=== PATIENT | female | born 1965 | race Caucasian/White ===

== ENCOUNTER → 2021-04-24 13:12 | Outpatient (CLI) | payer SELFPAY, OTHER ==
--- NOTE | 2021-04-24 13:21 | CT_ITS ---
STUDY: CT CHEST WITHOUT CONTRAST-limited (Overread chest structures for coronary scoring) REASON FOR EXAM: Female, 55 years old. FAM HX OF CAD CHEST OVER READ ONLY RADIATION DOSAGE (If Supplied By Facility): CTDIvol = ( 12.19 ) mGy, DLP = ( 195.04 ) mGycm TECHNIQUE: Transaxial imaging was performed without the administration of intravenous contrast material. Individualized dose optimization techniques were used for this CT. COMPARISON: None. FINDINGS: No airspace consolidation, localized groundglass opacity or noncalcified pulmonary nodule in the visualized portions of the lungs. No demonstrated effusion or pneumothorax. There are a few scattered subpleural and interstitial fibrotic reticular densities. Normal heart and pericardium. Coronary calcium scoring reported separately. No demonstrated adenopathy. No destructive bony process. Diminished density throughout the liver compatible with hepatic steatosis. CT/Limited Chest CT w/CCTA IMPRESSION: 1. No demonstrated pulmonary nodule/mass. 2. Hepatic steatosis. Electronically Signed: Miguelangel Baker MD ([facility]) at 8:18 EDT , Service support ,
[2021-04-24 13:36] VITALS: BP 128/76; PULSE 56; RESP 16; O2SAT 100; BMI 37.8
--- NOTE | 2021-04-24 17:59 | CA.SCORE ---
Calcium Scoring Date of Study:: 04/24/21 Coronary Calcium Scoring: High-resolution Computed Tomographic imaging of the chest was performed on 04-24-2021 with particular attention paid to the coronary arteries. Images from the examination were analyzed for the presence and extent of coronary artery calcification , using coronary calcium quantification software. The patient tolerated the procedure well and there were no complications. The results of the coronary calcification analysis are provided below. Findings Coronary Artery Left Main (LM): 0 Left Anterior Descending (LAD): 9.93 Left Circumflex (LCX): 0 Right Coronary Artery (RCA): 0 Total Agatston Score: 9.93 Percentile Ranking: Compared to prepublished reference tables between 50% and 75% of patients of the same gender and similar age had the same and/or lower scores Calcium Scoring Interpretation: 0 No identifiable atherosclerotic plaque. Very low cardiovascular disease risk. <5% chance of presence coronary artery disease A Negative Examination 1-10 Minimal Plaque burden. Significant coronary artery disease very unlikely. 11-100 Mild plaque burden. Likely mild or minimal coronary atherosclerosis. 101-400 Moderate plaque burden Moderate non-obstructive coronary artery disease highly likely. Over 400 Extensive plaque burden. High likelihood of at least one significant coronary stenosis (>50% diameter) Calcium Score: 1 -10 Significant coronary artery disease very unlikely Conclusion: Continue vascular risk evaluation and care as deemed appropriate. This note was generated using a voice recognition system and there may be incorrect words, spelling or punctuation that were not noted when reviewing the office note prior to saving.
== END ==
PROVIDERS: PCP Family Medicine; Referring Provider Family Medicine; Visit Provider Family Medicine
DX: Z13.6 Encounter for screening for cardiovascular disorders (principal); Z82.49 Family history of ischemic heart disease and other diseases of the circulatory system
CPT/HCPCS: 75571; 76380